=== PATIENT | female | born 1960 | race Caucasian/White ===

== ENCOUNTER → 2016-04-04 | Outpatient (CLI) | payer BC ==
[~2016-04-04] MED LIST: ALBUTEROL; CIPR500T89 PO; CITA20TA4 PO; FLAG500T AD; HYDR25TAB PO; NAPR250T45 PO; SIMV20TA2 PO; TIZA4CAP3 PO; VICODIN PO; VYTO10TA2 PO
--- NOTE | 2016-04-04 12:08 | REP ---
Cervical spine series: Seven views. History: Cervical spondylosis. Findings: Lateral views done in flexion/extension and neutral position demonstrate reversal of the normal cervical lordosis and some limitation of flexion/extension range of motion. There is degenerative disc narrowing and anterior posterior osteophytic ridging at C4-5, C5-6 and C6-7. There is a 2 mm C4-5 spondylolisthesis with the four flexion views which reduces on extension. No other subluxation or instability is seen. Prevertebral soft tissues are unremarkable. Open mouth odontoid and AP views are normal in appearance. Oblique images demonstrate uncovertebral spurring encroaching on the C5-6 neural foramina bilaterally. This is mild. Facets are normally aligned. Impression: Degenerative spondylosis changes as above most pronounced at C4-5, C5-6, and C6-7. Signed by Rodrigo Ovalle MD 04/04/2016 01:56 P
--- NOTE | 2016-04-04 12:29 | REP ---
Lumbar spine series: Seven views. History: Spondylosis. Findings: Lumbar vertebral body heights are preserved. Alignment is normal. Flexion/extension lateral views show no subluxation or instability. There is discogenic spurring most pronounced at L2-3. Pedicles and posterior elements are intact. There is no evidence of spondylolysis or spondylolisthesis. There is facet osteoarthritic narrowing and sclerosis and hypertrophy bilaterally at L4-5 and at L5-S1. The sacrum and SI joints are intact. Minimal SI joint sclerosis is present. Psoas margins are symmetric. There are clips in the right upper quadrant post cholecystectomy. Impression: Degenerative disc and osteoarthritic facet changes as noted above. Signed by Rodrigo Ovalle MD 04/04/2016 01:56 P
== END ==
LOC: M RAD 09:09
PROVIDERS: ATTEND Neurological Surgery
DX: M47.892 Other spondylosis, cervical region (principal)

== ENCOUNTER → 2016-06-28 | Outpatient (CLI) | payer BC ==
--- NOTE | 2016-07-09 01:42 | ECWPNPC ---
PATIENT NAME: ESTEPHANIE MAJOR : 1960 GENDER: FEMALE VISIT DATE: 06/28/2016 DISCHARGE DATE: 06/28/16 1458 VISIT LOCKED DATE TIME: PHYSICIAN: CHRIS CLARK RESOURCE: CHRIS CLARK REASON FOR APPOINTMENT 1. BACK HISTORY OF PRESENT ILLNESS FALL RISK SCREENIN55 Y/O FEMALE REFERRED BY DR. ALDRICH FOR EVALUATION OF CHRONIC CERVICAL AND LOW BACK PAIN.THIS BEGAN A FEW YEARS AGO WITHOUT PRECIPITATING EVENT.GENERALLY HURTS ALL OVER.PAIN IN LOW BACK SEEMS TO HAVE GOTTEN WORSE THIS PAST YEAR.REPORTS INTERMITTENT LEFT LEG PAIN AND NUMBNESS.COMPLAINING THAT LEFT NECK PAIN TODAY IS WORSE THAN LOW BACK.PAIN IS AGGREVATED BY PROLONGED SITTING AND STANDING.PATIENTS WORK INVOLVING [employer]AV[employer] L[employer] E[employer]. IS BOTHERSOME.USES TYLENOL NEEDED.RATING LOW BACK VAS 8/10.DENIES BOWEL OR BLADDER INCONTINENCE.NO RCENT FEVER,ILLNESS OR SUDDEN WEIGHT LOSS. SCREENING :NO FALLS IN THE PAST YEAR PAIN SCREENING: PATIENT HAS A COMPLAINT OF ACUTE OR CHRONIC PAIN :YES CURRENT MEDICATIONS TAKING NEURONTIN 300 MG CAPSULE 1 CAPSULE ORALLY DAILY PRN TAKING CYCLOBENZAPRINE HCL 5 MG TABLET 1 TABLET ORALLY DAILY PRN TAKING CITALOPRAM HYDROBROMIDE 20 MG TABLET 1 TABLET ORALLY ONCE A DAY TAKING ATENOLOL 50 MG TABLET 1 TABLET ORALLY ONCE A DAY TAKING LISINOPRIL 10 MG TABLET 1 TABLET ORALLY ONCE A DAY, NOTES: STARTED TODAY MEDICATION LIST REVIEWED AND RECONCILED WITH THE PATIENT PAST MEDICAL HISTORY HTN NECK AND BACK PAIN DEPRESSION HERNIATED CERVICAL DISC DIVERTICULITIS ALLERGIES IV DYE: NAUSEA/VOMITING: SIDE EFFECTS SURGICAL HISTORY TONSILLECTOMY 2002 COLONOSCOPY WITH POLYPECTOMY 2015 HYSTERECTOMY 1997 CHOLECYSTECTOMY 2002 RIGHT CARPAL TUNNEL RELEASE 12/2015 FAMILY HISTORY FATHER: 62 YRS, DIAGNOSED WITH DIABETES, HYPERTENSION, HEART DISEASE MOTHER: 74 YRS, DIAGNOSED WITH DIABETES, HYPERTENSION, HEART DISEASE, OTHER 1 SON(S) . MOTHER--RASON--PSYCHIATRIC ISSUES--SEVERE DEPRESSION. SOCIAL HISTORY GENERAL: TOBACCO USE ARE YOU A:CURRENT SMOKER HOW MANY CIGARETTES A DAY DO YOU SMOKE?6-10 HOW SOON AFTER YOU WAKE UP DO YOU SMOKE YOUR FIRST CIGARETTE?WITHIN 5 MIN HOW OFTEN DO YOU SMOKE CIGARETTES?EVERY DAY PATIENT COUNSELED ON THE DANGERS OF TOBACCO USE AND URGED TO QUIT:06/28/2016 ARE YOU INTERESTED IN QUITTING?NOT READY TO QUIT COUNSELED THE PATIENT ON SMOKING EFFECTS, EDUCATION [id number]/2017 LUNG CANCER SCREENING SMOKING STATUS:CURRENT SMOKER ALCOHOL SCREENING POINTS0 INTERPRETATIONNEGATIVE RECREATIONAL DRUG USE DRUG USE?NO CAFFEINE CAFFEINE USE?YES HOW OFTEN AND HOW MUCH? 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 DIET: REGULAR. EXERCISE: NO REGULAR EXERCISE. MARITAL STATUS: .. OTHERS AT HOME: SIGNIFICANT OTHER. PETS: 2 CATS. EPISCOPALIAN [id number] RELIGION LANGUAGE LANGUAGES SPOKEN:[place] EDUCATION LEVEL OF EDUCATION:COLLEGE LEARNING BARRIERS / SPECIAL NEEDS BARRIERS TO LEARNING?NO HEARING IMPAIRED?NO VISION IMPAIRED?YES :CORRECTIVE LENSES READING COGNITIVELY IMPAIRED?NO READINESS TO LEARN?YES LEARNING PREFERENCES?NO LEARNING CAPABILITIES PRESENT?YES EMOTIONAL BARRIERS?NO SPECIAL DEVICES?NO CAR MECHANIC NEEDED?NO PAIN CLINIC PFS, CLERGY, PUBLIC HEALTH REFERRALS PFS REFERRAL NEEDED?NO CLERGY REFERRAL NEEDED?NO PUBLIC HEALTH REFERRAL NEEDED?NO ADVANCED DIRECTIVES HEALTH CARE PROXY?NO ALREADY HAS WOULD YOU LIKE MORE INFORMATION?NO DO YOU HAVE A DNR?NO WOULD YOU LIKE MORE INFORMATION?NO LIVING WILL?NO WOULD YOU LIKE MORE INFORMATION?NO POWER OF TUBE BACKER?NO WOULD YOU LIKE MORE INFORMATION?NO DOMESTIC VIOLENCE: NONE. PLAN OF CARE FOR THE PAIN CENTER REVIEWED WITH PATIENT AND SHE VERBALIZED UNDERSTANDING. HOSPITALIZATION/MAJOR DIAGNOSTIC PROCEDURE RELATED TO SURGERIES REVIEW OF SYSTEMS CONSTITUTIONAL: ANY CHANGE IN YOUR MEDICAL CONDITION? NO . CHILLS NO . FEVER NO . INFECTION: DO YOU HAVE NEW INFECTIONS? NO . DO YOU HAVE HISTORY OF MRSA? NO . MUSCULOSKELETAL: ANY NEW PATTERNS OF PAIN OR NUMBNESS? NO . SYTEMIC LUPUS NO . GASTROENTEROLOGY: ANY NEW CHANGE IN BOWEL CONTROL? NO . BARRETTS ESOPHAGUS NO . CIRRHOSIS NO . HEPATITIS NO . LIVER FAILURE NO . ACID REFLUX NO . UNEXPLAINED WEIGHT LOSS NO . GENITOURINARY: ANY NEW CHANGE IN BLADDER CONTROL? NO . IS THERE A CHANCE YOU COULD BE ? NO . HEMATOLOGY/LYMPH: DO YOU TAKE ANY BLOOD THINNERS? (FOR EXAMPLE- COUMADIN, PLAVIX, AGGRENOX, PLATEL, PRADAXA, OR XARELTO) NO . WHEN WAS YOUR LAST DOSE? DATE: TIME: . LOW PLATELET COUNT NO . SICKLE CELL DISEASE NO . VON WILLIEBRANDS NO . FACTOR V LEIDEN NO . THALLASEMIA NO . ANEMIA NO . EASY BRUISING YES, , NOT ON ANTICOAGULANTS . NEUROLOGY: HAVE YOU FALLEN IN THE PAST 6 MONTHS? NO . ANY NEW EXTREMITY NUMBNESS OR WEAKNESS? NO . HEAD INJURY NO . DEMENTIA NO . CEREBRAL PALSY NO . MULTIPLE SCLEROSIS NO . DIZZINESS NO . HEADACHE NO . STROKES NO . VERTIGO NO . CARDIOLOGY: DO YOU HAVE A PACEMAKER OR DEFIBRILLATOR? NO . ANGINA NO . HEART ATTACK NO . HEART SURGERY NO . CONGESTIVE HEART FAILURE/FLUID OVERLOAD NO . CHEST PAIN NO . HIGH BLOOD PRESSURE ON MEDICATION(S) . IRREGULAR HEART BEAT NO . RESPIRATORY: HAVE YOU BEEN SICK IN THE PAST WEEK? NO . FEVER NO . FLU LIKE SYMPTOMS? NO . CPAP YES . BYPAP NO . ASTHMA NO . EMPHYSEMA NO . CHRONIC LUNG DISEASES NO . SHORTNESS OF BREATH ON EXERTION NO . COUGH NO . SNORING YES . INTEGUMENTARY: DO YOU HAVE ANY RASHES OR OPEN SORES? NO . ALLERGIC/IMMUNO: ARE YOU ALLERGIC TO SHELLFISH OR IV DYE? YES, IV DYE--N/V . ANY NEW ALLERGIES? NO . PSYCHIATRIC: DO YOU HAVE THOUGHTS OF HURTING YOURSELF OR SOMEONE ELSE? NO . ARE YOU ABUSED, NEGLECTED, OR IN AN UNSAFE ENVIRONMENT? NO . ENDOCRINOLOGY: ARE YOU DIABETIC? NO . THYROID DISORDER NO . OTHER: DO YOU NEED ANY PRESCRIPTIONS? NO . IF YES, PLEASE LIST: ____ . ANY NEW PROBLEMS WITH YOUR MEDICATIONS? NO . WHEN DID YOU LAST EAT? ____ . WHEN DID YOU LAST DRINK? ____ . WHAT DID YOU LAST DRINK? ____ . NAME OF PERSON DRIVING YOU HOME? ____ . DO YOU HAVE ANY OTHER QUESTIONS OR CONCERNS YES, PAIN RELIEF . REVIEWED BY: PROVIDER: CHRIS PERALTA . VITAL SIGNS WT 203 LBS, HT 61 IN, BMI 38.35 INDEX, BP 133/63 MM HG, HR 73 /MIN, RR 18 /MIN, TEMP 97.1 F, OXYGEN SAT % 94%, NA INITIALS SC 13:35, REVIEWED BY: AD. EXAMINATION GENERAL EXAMINATION: GENERAL APPEARANCE:COMFORTABLE. PSYCHAFFECT NORMAL. NECK:NO LYMPHADENOPATHY. LUNGS:LUNG GOMEZ ARE CLEAR TO AUSCULTATION BILATERALLY. GOOD MOVEMENT OF AIR. HEART:S1, S2 IN A REGULAR RATE AND RHYTHM. NO SIGNIFICANT MURMURS, RUBS OR GALLOPS NOTED. ABDOMEN:BOWEL SOUNDS: NORMAL, NO EPIGASTRIC TENDERNESS, NO GUARDING. CERVICAL SPINE/NECK: C SPINE EXAM:MRI [id number] CERVICAL SPONDYLOSIS C4/5-C5/6-C6/7. RANGE OF MOTION OF NECK:LIMITED LATERAL BENDING, LIMITED FLEXION AND EXTENSION. REFLEXES:2 PLUS BILATERALLY. MOTOR STRENGTH:NORMAL. PARASPINAL MUSCLE SPASM:PRESENT ON LEFT SIDE. TRAPEZIUS TENDERNESS:PRESENT ON LEFT SIDE. MYOFASCIAL TRIGGER POINTS:NOTED OVER LEFT TRAPEZIUS AND RHOMBOID. LUMBAR SPINE/LOWER BACK: LOWER BACK:MRI L/S [id number]-DEGENERATIVE CHANGES. INSPECTION:NORMAL CURVATURE OF SPINE. PALPATION:VERTEBRAL SPINE TENDERNESS, PARASPINAL TENDERNESS. MOTOR SYSTEM:5/5 BLE. SENSORY EXAM:NORMAL. REFLEXES:2/4 AND SYMMETRIC BLE. 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 CERVICAL RADICULOPATHY CERVICAL EPIDURAL CHRIS MONTOYA 06/28/2016 2:43:40 PM > C5/6 ADONIS PREVENTIVE MEDICINE PAIN CLINIC TEACHING: PROCEDURE TEACHING PRINTED INFORMATION IN ADONIS GIVEN TO AND EXPLIANED TO PT. ALONG WITH PRE-PROCEDURE INSTRUCTIONS. SHE VERBALIZED UNDERSTANDING ON BOTH. AD. PROCEDURE CODES [id number] ESTABILISHED PATIENT [facility] CHARGE DISPOSITION & COMMUNICATION FOLLOW UP 2WK POST (REASON: C4/5 ADONIS) ELECTRONICALLY SIGNED BY KATHRYN BANG ON 07/08/2016 AT 02:07 PM EDT DISCLAIMER : THIS IS A VISIT SUMMARY EXTRACTED FROM THE [facility] CHART. IT IS NOT A COPY OF THE [facility] PROGRESS NOTE. MTDD
== END ==
LOC: M PAIN 13:20
PROVIDERS: ATTEND Nurse Practitioner Family
DX: M50.20 Other cervical disc displacement, unspecified cervical region (principal); M54.12 Radiculopathy, cervical region; G89.29 Other chronic pain; Z79.891 Long term (current) use of opiate analgesic; Z79.899 Other long term (current) drug therapy; I10 Essential (primary) hypertension; F32.9 Major depressive disorder, single episode, unspecified; K57.92 Diverticulitis of intestine, part unspecified, without perforation or abscess without bleeding; Z91.041 Radiographic dye allergy status

== ENCOUNTER → 2018-04-24 | Outpatient (CLI) | payer OTHER ==
[~2018-04-24] MED LIST changes: +CIPR-249 PO; -CIPR500T89 PO; -NAPR250T45 PO; +NAPR250T82 PO; +TIZA4CAP PO; -TIZA4CAP3 PO; -VYTO10TA2 PO; +VYTO10TA25 PO
--- NOTE | 2018-04-24 21:39 | REP ---
Right knee MRI: The patient has had right knee pain ever since he had a pulling injury when giving out of bed on February 17, 2018. There are no comparison studies. The study is performed with proton density and T2 data sets in sagittal, axial and coronal projections. There is a joint effusion. There is no Concepcion's cyst. There is a ganglion posterior to the distal femoral shaft. There are suprapatellar plica. There is tricompartment osteoarthritis with associated chondromalacia. There is focal T2 signal in the subarticular tibial plateau adjacent to the tibial spines. This could represent a nondisplaced a avulsion of the lateral tibial spine. There is no anterior cruciate ligament tear or retraction. There is intermediate signal throughout the anterior cruciate ligament compatible with sprain. The posterior cruciate ligament is unremarkable. I suspect a bucket-handle tear in the posterior horn of the medial meniscus, seen to best advantage on the coronal images. Lateral meniscus is unremarkable. There is medial lateral collateral ligament T2 signal compatible with medial lateral collateral ligament sprain. This appears to be more severe medially. The quadriceps and patellar tendons are unremarkable. There is focal wall 82 interosseous signal posteriorly in the medial femoral condyle, bone cyst versus intraosseous ganglion. Impression: Diffuse soft tissue edema. Joint effusion. Question nondisplaced a avulsion at the base of the tibial spines. Question anterior cruciate ligament sprain. There is no tear or avulsion. Bucket-handle tear posterior horn of the medial meniscus. Medial and lateral collateral ligament sprain, worse medially. Suprapatellar plica. Tricompartment osteoarthritis is associated chondromalacia. Electronically Signed by Suraj Clayton MD 04/24/2018 09:29 P
== END ==
LOC: M RAD 15:06
PROVIDERS: ATTEND Nurse Practitioner Family
DX: M25.561 Pain in right knee (principal)

== ENCOUNTER → 2019-11-11 | Outpatient (CLI) | payer MEDICARE ==
[~2019-11-11] MED LIST changes: -CITA20TA4 PO; +CITA20TA6 PO; +HYDR-2541 PO; -HYDR25TAB PO; -SIMV20TA2 PO; +SIMV20TA22 PO
--- NOTE | 2019-11-19 10:16 | REP ---
MRI RIGHT SHOULDER WITHOUT CONTRAST HISTORY: Pain for three years. TECHNIQUE: Multiple sequences obtained in the axial, coronal oblique, and sagittal oblique planes. FINDINGS: There is a full thickness partial tear of the anterior supraspinatus tendon, with a gap in the tendon approximately 1.5 cm. There is a high-grade partial tear of the subscapularis tendon. There are moderate hypertrophic degenerative changes of the acromioclavicular joint. The acromion is type 2. There appears to be a high-grade tear of the proximal biceps tendon at its insertion onto the superior labrum. Moderate fluid surrounds the biceps tendon in the bicipital groove. There is no Hill-Sachs deformity. The deltoid muscle demonstrates no abnormal signal. There is diffuse fraying of the superior labrum. There appears to be a small peripheral tear of the posterior labrum. Subcortical cystic changes are seen throughout the humeral head. There is a moderate joint effusion, with fluid extending into the subacromial subdeltoid bursa. IMPRESSION: Partial full-thickness tear supraspinatus tendon anteriorly with a gap in the tendon approximately 1.5 cm. High-grade partial tear subscapularis tendon. Moderate hypertrophic degenerative changes of the acromioclavicular joint with a type 2 acromion. The biceps tendon demonstrates a high-grade partial tear at the labral insertion. There is diffuse fraying of the superior labrum. There is a small peripheral tear of the posterior labrum. Subchondral cystic changes humeral head. Moderate joint effusion, with fluid extending into the subacromial and subdeltoid bursa. MTDD
== END ==
LOC: M RAD 13:02
PROVIDERS: ATTEND Physician Assistant
DX: M19.011 Primary osteoarthritis, right shoulder (principal); S46.011A Strain of muscle(s) and tendon(s) of the rotator cuff of right shoulder, initial encounter; X58.XXXA Exposure to other specified factors, initial encounter; Y92.9 Unspecified place or not applicable